=== PATIENT | female | born 1970 | race African-American/Black ===

== ENCOUNTER 2017-08-16 17:52 | Emergency (ER) | payer OTHER ==
[~2017-08-16] VITALS: Ht 167.6 cm; Wt 94.3 kg
[2017-08-16] MEDS ORDERED: AMARYL4 MG PO (18:46)
[2017-08-16] MEDS ORDERED: NOVOLOG100 UNIT/1 SUBQ (18:47)
[2017-08-16] MEDS ORDERED: LANTUS SUBQ (18:48)
[2017-08-16] MEDS ORDERED: BUTALB-APAP-CA1 EACH PO (19:37)
[2017-08-16 19:44] VITALS: BP 128/48
== END 2017-08-16 19:46 | disposition home or self-care (01) ==
LOC: ER 17:52
DX: G43.909 Migraine, unspecified, not intractable, without status migrainosus (principal); E11.9 Type 2 diabetes mellitus without complications; M19.90 Unspecified osteoarthritis, unspecified site; Z90.710 Acquired absence of both cervix and uterus; Z79.4 Long term (current) use of insulin

== ENCOUNTER 2018-03-06 15:57 | Emergency (ER) | payer OTHER ==
[~2018-03-06] VITALS: Ht 167.6 cm; Wt 99.8 kg
--- NOTE | ~2018-03-06 | EKG ---
[place] [address] [facility] [place] [address] ELECTROCARDIOGRAM REPORT Name: CASSY WONG Room #: [facility] Lion#: [id number] Admission: 03/06/18 Attend Phys: Discharge: 03/06/18 Date of : 70 Report #: [id number] THIS REPORT FOR: //name// [facility] ED Test Date: 2018-03-06 Test Time: 17:15:38 Pat Name: CASSY WONG Department: Room: Gender: Tamper Operator: herve : 1970 Requested By: Angel Forte Order Number: [id number] MD: Dequan Shultz Measurements Intervals [place] Rate: 98 P: 58 [place]: 143 QRS: 53 QRSD: 98 T: 26 QT: 342 QTc: 437 Interpretive Statements Sinus rhythm Normal tracing No previous ECG available for comparison Electronically Signed On 03-07-2018 8:04:18 CDT by Dequan Shultz [email or web address] <ELECTRONICALLY SIGNED> By: Dequan Shultz MD, [facility] 03/07/18 0804 1715 1715 Dequan Shultz MD, FACC /EPI
[~2018-03-06 15:57] MED LIST: AMARYL4 MG PO; BUTALB-APAP-CA1 EACH PO; LANTUS SUBQ; NOVOLOG100 UNIT/1 SUBQ
[2018-03-06 16:29] LABS: ABSOLUTE NEUTROPHILS 6.6 thou/uL (1.4-8.2); BASOPHILS 0.8 % (0.0-2.0); EOSINOPHILS 2.8 % (0.0-3.0); HEMATOCRIT 38.4 % (37.0-47.0); HEMOGLOBIN 13.2 gm/dL (12.0-15.0); LYMPHOCYTES 18.4 % (24.0-44.0); MCH 29.8 pg (26.0-34.0); MCHC 34.5 g/dL (28.0-37.0); MCV 86.6 fL (80.0-100.0); PLATELET COUNT 247 thou/uL (150-400); RBC 4.44 mil/uL (4.20-5.00); RDW 13.7 % (10.5-14.5); WBC 9.4 thou/uL (4.0-11.0)
[2018-03-06 16:32] LABS: CALCIUM 8.7 mg/dL (8.5-10.1); CREATININE 0.9 mg/dL (0.6-1.0); POTASSIUM 3.6 mmol/L (3.5-5.1)
[2018-03-06 16:37] LABS: ALBUMIN 3.4 g/dL (3.4-5.0); TOTAL BILIRUBIN 0.3 mg/dL (<0.1-1.0); TOTAL PROTEIN 8.3 g/dL (6.4-8.2)
[2018-03-06 20:31] LABS: URINE BILIRUBIN NEGATIVE (Negative); URINE BLOOD 1+ (Negative); URINE CLARITY CLEAR; URINE COLOR YELLOW; URINE GLUCOSE-RANDOM* NEGATIVE (Negative); URINE KETONES NEGATIVE (Negative); URINE LEUKOCYTES-REFLEX NEGATIVE (Negative); URINE NITRITE-REFLEX NEGATIVE (Negative); URINE PROTEIN (DIPSTICK) NEGATIVE (Negative); URINE SPECIFIC GRAVITY <= 1.005 (1.005-1.035); URINE UROBILINOGEN 0.2 E.U./dl (0.2-1.0)
[2018-03-06 20:40] LABS: BACTERIA-REFLEX None Seen /HPF (None Seen); CASTS None Seen /LPF (None Seen); CRYSTALS None Seen /LPF (None Seen); SQUAMOUS None Seen /LPF (0-3); URINE RBC 0-2 Rare /HPF (0-2); URINE WBC-REFLEX None Seen /HPF (0-5)
[2018-03-06] MEDS ORDERED: NORCO 5-325 TA1 EACH PO (21:15)
[2018-03-06] MEDS ORDERED: SENNA-DOCUSATE1 EACH PO (21:15)
[2018-03-06] MEDS ORDERED: PROTONIX40 MG PO (21:15)
[2018-03-06] MEDS ORDERED: ZOFRAN4 MG PO (21:15)
[2018-03-06 21:46] VITALS: BP 125/67
== END 2018-03-06 21:47 | disposition home or self-care (01) ==
LOC: ER 15:57
PROVIDERS: Emergency Medicine
DX: K62.5 Hemorrhage of anus and rectum (principal); R10.13 Epigastric pain; R51 Headache; R11.0 Nausea; R53.83 Other fatigue; E11.9 Type 2 diabetes mellitus without complications; M19.90 Unspecified osteoarthritis, unspecified site; Z90.710 Acquired absence of both cervix and uterus

== ENCOUNTER 2019-05-05 23:37 | Emergency (ER) | payer OTHER ==
[~2019-05-05] VITALS: Ht 167.6 cm; Wt 95.3 kg
[~2019-05-05 23:37] MED LIST changes: +NORCO 5-325 TA1 EACH PO; +PROTONIX40 MG PO; +SENNA-DOCUSATE1 EACH PO; +ZOFRAN4 MG PO
[2019-05-06] MEDS ORDERED: TESSALON PERLE100 MG PO (00:58)
[2019-05-06] MEDS ORDERED: BUTALB-APAP-CA1 EACH PO (00:58)
[2019-05-06 02:20] VITALS: BP 161/79
== END 2019-05-06 02:22 | disposition home or self-care (01) ==
LOC: ER 23:37
DX: G43.909 Migraine, unspecified, not intractable, without status migrainosus (principal); J06.9 Acute upper respiratory infection, unspecified; E11.9 Type 2 diabetes mellitus without complications; M19.90 Unspecified osteoarthritis, unspecified site; Z90.710 Acquired absence of both cervix and uterus; Z79.4 Long term (current) use of insulin

== ENCOUNTER 2019-09-16 09:44 | Emergency (ER) | payer OTHER ==
[~2019-09-16] VITALS: Ht 167.6 cm; Wt 93.0 kg
[~2019-09-16 09:44] MED LIST changes: +TESSALON PERLE100 MG PO
[2019-09-16] MEDS ORDERED: AMOXICILLIN875 MG PO (10:42)
[2019-09-16] MEDS ORDERED: ZOFRAN ODT4 MG PO (10:42)
[2019-09-16 10:57] VITALS: BP 115/71
== END 2019-09-16 10:58 | disposition home or self-care (01) ==
LOC: ER 09:44
DX: J02.9 Acute pharyngitis, unspecified (principal); E11.9 Type 2 diabetes mellitus without complications; M19.90 Unspecified osteoarthritis, unspecified site; Z90.710 Acquired absence of both cervix and uterus; Z79.4 Long term (current) use of insulin

== ENCOUNTER 2020-09-03 12:20 | Emergency (ER) | payer OTHER ==
[~2020-09-03] VITALS: Ht 167.6 cm; Wt 93.0 kg
[~2020-09-03 12:20] MED LIST changes: +AMOXICILLIN875 MG PO; +ZOFRAN ODT4 MG PO
[2020-09-03 13:13] VITALS: BP 131/57
--- NOTE | 2020-09-03 14:11 | EKG ---
[place] [address] [facility] [place] [address] ELECTROCARDIOGRAM REPORT Name: CASSY WONG Room #: [facility] Lion#: [id number] Admission: 09/03/20 Attend Phys: Discharge: 09/03/20 Date of : 70 Report #: [id number] [facility] ED Test Date: 2020-09-03 Test Time: 12:30:47 Pat Name: CASSY WONG Department: Room: Gender: F Human Resources Benefits Specialist: VIDYA : 1970 Requested By: Jaime Augustine Order Number: [id number] MD: Jama Guardado Measurements Intervals [place] Rate: 97 P: 55 [place]: 154 QRS: 44 QRSD: 93 T: 29 QT: 365 QTc: 464 Interpretive Statements Sinus rhythm Probable left atrial enlargement Compared to ECG 03/06/2018 17:15:38 No significant changes Electronically Signed On 09-03-2020 14:10:53 [employer] WORK[employer] by Jama Guardado [email or web address] <ELECTRONICALLY SIGNED> By: Jama Guardado MD, [facility] 09/03/20 1410 1230 1230 Jama Guardado MD, FACC /EPI
== END 2020-09-03 13:13 | disposition home or self-care (01) ==
LOC: ER 12:20
DX: T78.40XA Allergy, unspecified, initial encounter (principal); T50.Z95A Adverse effect of other vaccines and biological substances, initial encounter; E11.9 Type 2 diabetes mellitus without complications; Z90.710 Acquired absence of both cervix and uterus; Z79.4 Long term (current) use of insulin; Z79.899 Other long term (current) drug therapy; Y92.89 Other specified places as the place of occurrence of the external cause

== ENCOUNTER 2021-05-29 20:43 | Emergency (ER) | payer OTHER ==
[~2021-05-29] VITALS: Ht 167.6 cm; Wt 97.5 kg
[2021-05-29 21:40] LABS: URINE BILIRUBIN NEGATIVE (Negative); URINE BLOOD NEGATIVE (Negative); URINE CLARITY CLEAR; URINE COLOR YELLOW; URINE GLUCOSE-RANDOM* NEGATIVE (Negative); URINE KETONES TRACE (Negative); URINE LEUKOCYTES-REFLEX NEGATIVE (Negative); URINE NITRITE-REFLEX NEGATIVE (Negative); URINE PROTEIN (DIPSTICK) NEGATIVE (Negative); URINE SPECIFIC GRAVITY >= 1.030 (1.005-1.035); URINE UROBILINOGEN 0.2 E.U./dl (0.2-1.0)
[2021-05-29 21:58] LABS: ABSOLUTE NEUTROPHILS 2.3 thou/uL (1.4-8.2); HEMOGLOBIN 12.4 gm/dL (12.0-15.0); MCHC 32.8 g/dL (28.0-37.0); RDW 14.3 % (10.5-14.5)
[2021-05-29 22:00] LABS: BASOPHILS 0.9 % (0.0-2.0); EOSINOPHILS 5.6 % (0.0-3.0); HEMATOCRIT 37.9 % (37.0-47.0); LYMPHOCYTES 43.2 % (24.0-44.0); MCH 28.8 pg (26.0-34.0); MCV 87.8 fL (80.0-100.0); MONOCYTES 7.4 % (1.0-8.0); PLATELET COUNT 281 thou/uL (150-400); POLYS 42.9 % (36.0-66.0); RBC 4.31 mil/uL (4.20-5.00); WBC 5.3 thou/uL (4.0-11.0)
[2021-05-29 22:08] LABS: CALCIUM 8.7 mg/dL (8.5-10.1); CREATININE 1.1 mg/dL (0.6-1.0)
[2021-05-29 22:17] LABS: ALBUMIN 3.5 g/dL (3.4-5.0); TOTAL BILIRUBIN 0.3 mg/dL (0.2-1.0); TOTAL PROTEIN 7.4 g/dL (6.4-8.2)
[2021-05-29] MEDS ORDERED: NAPROSYN500 MG PO (23:11)
[2021-05-29 23:22] VITALS: BP 132/74
== END 2021-05-29 23:22 | disposition home or self-care (01) ==
LOC: ER 20:43
PROVIDERS: Emergency Medicine; Nurse Practitioner Family
DX: R10.11 Right upper quadrant pain (principal); E11.9 Type 2 diabetes mellitus without complications; M19.90 Unspecified osteoarthritis, unspecified site; Z90.710 Acquired absence of both cervix and uterus; Z79.4 Long term (current) use of insulin; Z79.899 Other long term (current) drug therapy